=== PATIENT | female | born 1995 | race Two or more races ===

== ENCOUNTER 2019-08-21 12:55 | Emergency (ER) | payer OTHER ==
[2019-08-21] MEDS ORDERED: Ketorolac Tromethamine 30 MG/ML VIAL ONE (14:50)
--- NOTE | 2019-08-21 15:12 | RAD ---
EXAM: AP PELVIS ONE VIEW: History: Injury from trauma. FINDINGS: IUD in place. No evidence for acute fracture or dislocation. IMPRESSION: No evidence for acute pelvic fracture or dislocation. IUD in place. POS: [facility]
--- NOTE | 2019-08-21 15:13 | RAD ---
Exam: CHEST ONE VIEW: History: Injury from trauma. FINDINGS: Heart size is within normal limits. The lungs are clear. No pneumothorax or pleural effusion. IMPRESSION: No acute intrathoracic disease. POS: [facility]
== END 2019-08-21 15:10 | disposition home or self-care (01) ==
LOC: ERS 12:55
DX: S20.212A Contusion of left front wall of thorax, initial encounter (principal); V89.2XXA Person injured in unspecified motor-vehicle accident, traffic, initial encounter
CPT/HCPCS: 71045; 72170; 93005; 96372; J1885